=== PATIENT | female | born 2000 | race Caucasian/White ===

== ENCOUNTER 2023-04-22 19:35 | Emergency (ER) | payer OTHER, SELFPAY ==
--- NOTE | ~2023-04-22 | XR_ITS ---
EXAM: XR ankle RT min 3V DATE: 04/22/2023 20:02 HISTORY: FELL 2 DAYS AGO, ROLLING ANKLE OUTWARD . COMPARISON: None available. FINDINGS: Normal mineralization. Oblique fracture at the tip of the lateral malleolus with minimal d istraction. Lateral joint space widening. Os navicularis. No lytic or blastic lesion. Joint spaces ar e maintained. No erosion or periosteal change. Lateral ankle soft tissue swelling. IMPRESSION: Oblique minimally distracted fracture of the tip of the lateral malleolus. Reviewed, dictated and finalized at location K. IMPRESSION: Oblique minimally distracted fracture of the tip of the lateral mal leolus.
[2023-04-22 20:06] VITALS: BP 128/86; PULSE 106; RESP 18; TEMP 36.4; O2SAT 98
--- NOTE | 2023-04-22 20:09 | ED.LOWEXIN ---
HPI - Extremity Injury (Lower) General Chief Complaint: Extremity Injury, Lower Stated Complaint: Injured ankle Time Seen by Provider: 04/22/23 20:04 Source: patient and RN notes reviewed Mode of arrival: ambulatory Limitations: no limitations History of Present Illness HPI Narrative: Patient presents today complaining of left ankle pain. States she was walking on a hill 2 days ago when she twisted her ankle. Reports that she has been hopping and crawling since that time if she is not able a ambulate. Denies numbness or tingling. She is pain-free at rest, which increases to 8/10 with movement or weight-bearing. She has been applying ice and elevating her ankle. She has not taken any rynb-ayo-voshxko medication for symptoms prior to arrival. Related Data Home Medications Medication Instructions Recorded Confirmed norethindrone 1 mg-ethinyl 1 tablet PO DAILY 04/22/23 04/22/23 estradiol 10 mcg (24)-iron 10 mcg(2) tablet (Lo Loestrin Fe) Allergies Allergy/AdvReac Type Severity Reaction Status Date / Time No Known Allergies Allergy Verified 04/22/23 19:47 Review of Systems Review of Systems: CONSTITUTIONAL: Denies body aches, fever, chills, or sweats. EYES: Denies visual changes, redness, or discharge. ENT: Denies rhinorrhea, congestion, sore throat, or otalgia. CARDIOVASCULAR: Denies chest pain, palpitations, or edema. RESPIRATORY: Denies cough or dyspnea. GASTROINTESTINAL: Denies abdominal pain, nausea, vomiting, or diarrhea. GENITOURINARY: Denies dysuria or hematuria. SKIN: Denies rash, itching, or wounds. MUSCULOSKELETAL: Denies back pain, or myalgia.+ left ankle injury NEUROLOGIC: Denies headache, numbness, tingling, or weakness. PSYCH: Denies depression or anxiety. PMFSH Comments At time of signature, I have reviewed and agree with nursing past medical, surgical, social and family history unless otherwise noted. Please see nursing chart for further information. There is no relevant family history pertinent to the presenting complaint Exam Narrative: GENERAL: Well-appearing, well-nourished, and in no acute distress. HEAD: Normocephalic, atraumatic. EYES: EOMI. No redness or drainage. Conjunctivae normal. ENT: Mucous membranes pink and moist. NECK: Normal AROM. CHEST: No respiratory distress. EXTREMITIES: Left ankle: Moderate swelling to the lateral malleolus with tenderness and scant ecchymosis. No tenderness to the foot or medial ankle. Distal sensation intact. Capillary refill normal. Pedal pulse normal. Full P ROM of the ankle with scant increased pain. SKIN: Warm, dry, no rash. Capillary refill normal. Normal skin turgor. NEURO: No focal deficits. Alert and oriented x3. Gait steady. PSYCH: Normal affect. No signs of depression or anxiety. Course Course Level of Care: Express Care Visit Vital Signs Vital signs: Vital Signs Temperature 97.6 F 04/22/23 20:06 Pulse Rate 106 H 04/22/23 20:06 Respiratory Rate 18 04/22/23 20:06 Blood Pressure 128/86 04/22/23 20:06 Pulse Oximetry 98 04/22/23 20:06 Oxygen Delivery Room Air 04/22/23 20:06 Temperature 97.6 F 04/22/23 20:06 Pulse Rate 106 H 04/22/23 20:06 Respiratory Rate 18 04/22/23 20:06 Blood Pressure 128/86 04/22/23 20:06 Pulse Oximetry 98 04/22/23 20:06 Oxygen Delivery Room Air 04/22/23 20:06 Reviewed. Pt has been instructed to follow up with her PCP regarding her elevated blood pressure today. Procedures Orthopedic Splinting/Casting Injury #1: Splinting/Casting Date: 04/22/23 Splinting/Casting Time: 20:53 Side: left Lower Extremity Injury Location: ankle OCL: short leg Pre-Procedure Neuro Vascular Exam: normal Post-Procedure Neuro Vascular Exam: normal Additional Comments: Placed by myself and RN. Pt tolerated procedure well. MDM - Extremity Injury (Lower) MDM Narrative Medical decision making narrative: [facility]
== END 2023-04-22 21:00 | disposition home or self-care (01) ==
PROVIDERS: Emergency Provider Nurse Practitioner
DX: S82.62XA Displaced fracture of lateral malleolus of left fibula, initial encounter for closed fracture (principal); X50.9XXA Other and unspecified overexertion or strenuous movements or postures, initial encounter
CPT/HCPCS: 29515; 73610; 99214; G0463